=== PATIENT | female | born 1970 | race Native Hawaiian/Other Pacific Islander ===

== ENCOUNTER 2016-09-06 14:48 | Outpatient (CLI) | payer OTHER ==
--- NOTE | 2016-09-06 17:44 | DIAGNOSTIC IMAGING REPORT ---
PROCEDURE: MG BILATERAL SCREENING W/CAD INDICATION: Screening. Family history breast carcinoma (mother). TECHNIQUE: Bilateral CC and MLO digital views. COMPARISON: Compared to prior studies from [facility] on 04/08/2008. FINDINGS: Computer-aided detection applied. Moderately dense. No change. IMPRESSION: 1. Negative mammogram RESULT CODE: 1- Negative. A. A negative report should not delay biopsy if a dominant or clinically suspicious mass is present. 10-15% of cancers are not identified by x-ray. B. A negative report may reinforce clinical impression. C. Adenosis and dense breasts may obscure an underlying neoplasm. D. False positive reports average 6-10%. E.. A yearly screening mammogram is recommended. A reminder letter will be scheduled.
== END 2016-09-06 23:00 ==
LOC: MAM SRH 14:48
DX: Z12.31 Encounter for screening mammogram for malignant neoplasm of breast (principal); Z80.3 Family history of malignant neoplasm of breast

== ENCOUNTER 2016-11-27 09:42 | Outpatient (CLI) | payer OTHER | END 2016-11-27 23:00 | LOC: LAB SRH 09:42 | DX: E87.6 Hypokalemia (principal); I10 Essential (primary) hypertension | CPT/HCPCS: 90027; 90074; 90221; 90936; 91219; 92130; 92320; 92340; 92715; 92720; 93009; 93010; 97030; 97201; 97680 ==